=== PATIENT | male | born 1955 | race Caucasian/White ===

== ENCOUNTER 2022-03-09 09:52 | Outpatient (CLI) | payer MEDICAID, SELFPAY ==
--- NOTE | 2022-03-09 10:12 | CT_ITS ---
WS: [id number] LDCT LUNG CANCER SCREENING HISTORY: HX OF TOBACCO USE TECHNIQUE: Axial imaging performed from the apices to 1 cm below the costophrenic angles. Coronal and sagittal reformats are submitted with axial MIP series. All CT scans at [facility] use at least one of these dose optimization techniques: automated exposure control; mA and/or kV adjustment per patient size (includes targeted exams where dose is matched to clinical indication); or iterativ e reconstruction. DLP: 70.90 mGy.cm DIvol: Mean CTDIvol: 1.60 (mGy) COMPARISON: None available. Diagnostic quality: Breathing motion artifact at the lung bases. Lung Nodules: None. Lungs: No mass or pulmonary nodules identified. Focal area of atelectasis in the RIGHT middle lobe al sha the fissure. There is also an area of atelectasis in the lingula. Heart: Normal size heart. Defibrillator wires are present in the RIGHT heart. Aortic valve replacemen t. Coronary artery calcifications. Other findings: Prior CABG. Small hiatal hernia. Thoracic spondylitic changes. CT/CT lung screening [id number] IMPRESSION: LUNG-RADS: 1-Negative FOLLOW UP: 12 Month: Continue annual screening with LDCT OTHER FINDINGS (S MODIFIER): None.
== END 2022-03-09 09:53 | disposition home or self-care (01) ==
LOC: RAD 09:57
PROVIDERS: Family Provider Family Medicine; Visit Provider Family Medicine
DX: Z87.891 Personal history of nicotine dependence (principal)
CPT/HCPCS: 71271

== ENCOUNTER 2022-04-05 11:11 | Outpatient (CLI) | payer MEDICAID, SELFPAY ==
--- NOTE | 2022-04-05 13:46 | PFTS_ITS ---
Date of Study:04/05/22 Date of Dictation: 04/07/2022 MECHANICS: Postbronchodilator forced vital capacity (FVC) is reduced. Postbronchodilator forced expiratory volume in one second (FEV1) is moderately reduced. FEV1/FVC is reduced. There is no significant response to bronchodilator. FLOW VOLUME LOOP: Sloping of expiratory limb suggestive of airflow obstruction. LUNG VOLUMES: Not measured DIFFUSING CAPACITY FOR CARBON MONOXIDE: Not measured . INTERPRETATION: The spirometry suggestive of moderate airflow obstruction. There is no postbronchodilator study. Lung volumes and gas transfer not measured. Clinical correlation recommended. MTDD
== END 2022-04-05 11:12 | disposition home or self-care (01) ==
PROVIDERS: Family Provider Family Medicine; Visit Provider Family Medicine
DX: J44.9 Chronic obstructive pulmonary disease, unspecified (principal)
CPT/HCPCS: 94060; J7614

== ENCOUNTER → 2022-04-10 12:15 | Outpatient (BNVA) | payer MEDICAID, SELFPAY | PROVIDERS: Family Provider Family Medicine; PCP Family Medicine; Visit Provider Internal Medicine | DX: I25.10 Atherosclerotic heart disease of native coronary artery without angina pectoris (principal); I10 Essential (primary) hypertension; Z95.0 Presence of cardiac pacemaker; E78.5 Hyperlipidemia, unspecified; Z95.2 Presence of prosthetic heart valve; R06.00 Dyspnea, unspecified; Z87.891 Personal history of nicotine dependence | CPT/HCPCS: 99203; 99204 ==

== ENCOUNTER 2022-05-02 10:36 | Outpatient (CLI) | payer MEDICAID, SELFPAY ==
--- NOTE | 2022-05-02 11:45 | USCV_ITS ---
Roger Correa Age: 66 Gender: M : 1955 Exam Date: 05/02/2022 11:22 Ordering Phys: Juan Auguste M.D ([email or web address]) Technologist: Dina Coburn Exam Location: [facility] Indication: SOB, CAD BP: 128 / 80 HR: 69 Rhythm: Sinus Technical Quality: Very technically difficult study MEASUREMENTS (Male / Female) Normal Values 2D ECHO LV Diastolic Diameter PLAX 5.6 cm 4.2 - 5.9 / 3.9 - 5.3 cm LV Systolic Diameter PLAX 2.7 cm IVS Diastolic Thickness 1.2 cm 0.6 - 1.0 / 0.6 - 0.9 cm IVS Systolic Thickness 1.8 cm LVPW Diastolic Thickness 1.1 cm 0.6 - 1.0 / 0.6 - 0.9 cm LVPW Systolic Thickness 1.7 cm LVOT Diameter 2.2 cm LV Ejection Fraction 2D Teich 81.7 % LV Ejection Fraction MOD 2C 73.9 % LV Ejection Fraction 2C AL 73.8 % LA Diameter 3.7 cm LA Width 4.2 cm LA Height 5.9 cm Aorta at Sinotubular Diameter 3.4 cm IVC Diameter 2.4 cm M-MODE MV E Point Septal Separation 1.4 cm DOPPLER AV Peak Velocity 173.7 cm/s LVOT Peak Velocity 79.0 cm/s AV Area Cont Eq vti 1.9 cm squared AV Area Cont Eq pk 1.7 cm squared MV Peak Velocity 157.0 cm/s MV Area PHT 3.4 cm squared Mitral E to A Ratio 1.2 MV E' Velocity 53.5 cm/s Mitral E to MV E' Ratio 17.4 Mitral E to LV E' Lateral Ratio 16.0 Mitral E to LV E' Septal Ratio 19.4 TR Peak Velocity 55.0 cm/s TR Peak Gradient 1.2 mmHg Right Atrial Pressure 3.0 mmHg Pulmonary Artery Systolic Pressu 4.2 mmHg PV Peak Velocity 85.0 cm/s RV Acceleration Time 0.1 s RV Ejection Time 0.3 s RV AcT/ET 0.4 FINDINGS Left Ventricle LV is mildly dilated. LV systolic function is grossly normal. Regional wall motion abnormalities can not be accurately assessed. Right Ventricle Normal in size. Grossly normal function. Pacemaker lead is seen Right Atrium Not well visualized Left Atrium Not well visualized Mitral Valve Thickened mitral valve. Mild mitral regurgitation. Aortic Valve Bioprothetic aortic valve is grossly normal. No significant stenosis. Mild aortic regurgitation. Tricuspid Valve Not well visualized Pulmonic Valve Not well visualized Pericardium Normal Aorta Normal in size IVC CONCLUSIONS Technically limited quality echocardiogram because of poor ultrasonic windows LV is mildly dilated. LV systolic function is grossly normal Mild mitral regurgitation Bioprosthetic aortic valve is grossly normal. Mild aortic regurgitation No comparison studies are available Juan Auguste MD (Electronically Signed) Final Date: 17 May 2022 20:23 S
== END 2022-05-02 10:37 | disposition home or self-care (01) ==
PROVIDERS: PCP Family Medicine; Visit Provider Internal Medicine
DX: R06.02 Shortness of breath (principal); I25.10 Atherosclerotic heart disease of native coronary artery without angina pectoris; I34.0 Nonrheumatic mitral (valve) insufficiency; Z95.2 Presence of prosthetic heart valve
CPT/HCPCS: 36415; 93306

== ENCOUNTER 2022-05-03 10:30 | Outpatient (CLI) | payer MEDICAID, SELFPAY ==
[2022-05-03 11:37] LABS: Anion Gap 13.7 (5-19); Blood Urea Nitrogen 14 mg/dL (8-23); Calcium 8.8 mg/dL (8.5-10.5); Carbon Dioxide 30 mmol/L (22-29); Chloride 99 mmol/L (98-107); Glomerular Filtration Rate 113.2 mL/min (90-130); Glucose 160 mg/dL (65-115); NT Pro B Type Natriuretic Pept 158 pg/mL (0-125); Osmolality Calculated 292 mOsm/kg (285-295); Potassium 3.7 mmol/L (3.5-5.1); Sodium 139 mmol/L (136-145)
== END 2022-05-03 10:31 | disposition home or self-care (01) ==
LOC: LAB 10:34
PROVIDERS: PCP Family Medicine; Visit Provider Internal Medicine
DX: Z01.89 Encounter for other specified special examinations (principal)
CPT/HCPCS: 36415; 80048; 83880

== ENCOUNTER → 2022-06-07 08:46 | Outpatient (BNVA) | payer MEDICAID, SELFPAY | PROVIDERS: PCP Family Medicine; Visit Provider Internal Medicine Pulmonary Disease | DX: R06.02 Shortness of breath (principal); I25.10 Atherosclerotic heart disease of native coronary artery without angina pectoris; Z95.0 Presence of cardiac pacemaker; J44.9 Chronic obstructive pulmonary disease, unspecified; E66.9 Obesity, unspecified; Z68.42 Body mass index [BMI] 45.0-49.9, adult; R53.81 Other malaise; Z87.891 Personal history of nicotine dependence; Z95.1 Presence of aortocoronary bypass graft; Z91.11 Patient's noncompliance with dietary regimen; Z95.2 Presence of prosthetic heart valve | CPT/HCPCS: 99204 ==

== ENCOUNTER → 2022-08-14 12:33 | Outpatient (BNVA) | payer MEDICAID, SELFPAY | PROVIDERS: PCP Family Medicine; Visit Provider Internal Medicine | DX: I25.10 Atherosclerotic heart disease of native coronary artery without angina pectoris (principal); I10 Essential (primary) hypertension; Z95.0 Presence of cardiac pacemaker; E78.5 Hyperlipidemia, unspecified; E11.9 Type 2 diabetes mellitus without complications; Z79.4 Long term (current) use of insulin; Z87.891 Personal history of nicotine dependence | CPT/HCPCS: 80048; 83880; 99214 ==

== ENCOUNTER 2022-08-15 13:16 | Outpatient (CLI) | payer MEDICAID, SELFPAY | END 2022-08-15 13:17 | disposition home or self-care (01) | LOC: RT 13:17 | PROVIDERS: PCP Family Medicine; Visit Provider Internal Medicine Pulmonary Disease | DX: J44.9 Chronic obstructive pulmonary disease, unspecified (principal); E66.9 Obesity, unspecified | CPT/HCPCS: 94060; 94618; 94726; 94729; J7613 ==

== ENCOUNTER 2022-10-20 08:04 | Outpatient (CLI) | payer MEDICAID, SELFPAY ==
--- NOTE | 2022-10-20 08:00 | FL_ITS ---
WS: [id number] FL barium swallow [id number] REASON FOR EXAM: R13.10 - Dysphagia, unspecified FLUOROSCOPY TIME: 1min [id number] # OF SPOT FILMS: 82 FINDINGS: The cervical esophagus was evaluated with the patient in the upright lateral and AP projections. Rapi d sequence spot films were obtained. The swallowing mechanism of the oropharynx in the cervical esoph sheyla is normal. No evidence of aspiration. The thoracic esophagus was of normal caliber without extrinsic mass compression. There was normal mot ility in proper emptying of the esophagus with passage through a normal gastroesophageal junction. Sm all sliding hiatal hernia. No significant reflux demonstrated. FL/FL barium swallow [id number] IMPRESSION: The esophagram is normal. The patient's symptoms as related to me or of some coughing and choking with fo od. The patient might benefit from a formal modified barium swallow supervised by the speech therapy department.
== END 2022-10-20 08:05 | disposition home or self-care (01) ==
LOC: RAD 08:05
PROVIDERS: PCP Family Medicine; Visit Provider Internal Medicine Pulmonary Disease
DX: R13.10 Dysphagia, unspecified (principal); J44.9 Chronic obstructive pulmonary disease, unspecified; R06.02 Shortness of breath
CPT/HCPCS: 74220

== ENCOUNTER 2022-11-03 10:12 | Outpatient (CLI) | payer MEDICAID, SELFPAY ==
--- NOTE | 2022-11-03 | ECG_ITS ---
[facility] Test Date: 2022-11-03 Pat Name: Roger Correa Department: Room: Gender: Male Manager Poker: : 1955 Requested By: Juan Auguste Order Number: [id number] Chris MD: Juan Auguste M.D. Interpretive Statements NAME OF STUDY: LEXISCAN SESTAMIBI STRESS TEST INDICATION: [Shortness of Breath; Chest Pain, ] Procedure: At the baseline, the blood pressure was 136/78 mmHg with a heart rate of 75 bpm. The electrocardiogram showed normal sinus rhythm, left bundle branch block. The Lexiscan was infused over a period of 20 seconds. A total of 0.4 mg of Lexiscan was infused. The stress phase was continued for a total of 5 minutes. Heart rate was at the end of stress phase was 77 bpm and a blood pressure of 153/89 mmHg. The EKG at the peak infusion revealed normal sinus rhythm with no significant ST-T wave changes. Sestamibi was injected 20 seconds after the Lexiscan infusion. Blood pressure at the end of recovery phase was 142/70 mmHg with a heart rate of 80 bpm. Conclusion: 1. Normal EKG response to Lexiscan infusion 2. No Lexiscan induced chest pain or cardiac arrhythmia. 3. Normal blood pressure and heart rate response. 4. Sestamibi/sestamibi perfusion scan pending; see separate report. Electronically Signed On 11-11-2022 18:53:00 STONECUTTER HAND by Juan Auguste M.D. [email or web address]
[2022-11-03 10:33] VITALS: BMI 45.7
--- NOTE | 2022-11-03 10:34 | NMCV_ITS ---
NM dat perf SPECT r/s* [id number] Roger Correa Age: 66 Gender: M : 1955 Exam Date: 11/03/2022 11:49 Ordering Phys: Juan Auguste M.D ([email or web address]) Technologist: WESLEY Stewart Exam Location: [facility] Indications: Chest pain STRESS TEST [facility] IMAGE PROTOCOL Rest/Stress 1 Lexiscan Day Radiopharmaceutical Dose (mCi) Administration Site Administered by Rest: Tc-99m 10.9 IV WESLEY Stewart Sestamibi Stress:Tc-99m 33.0 IV WESLEY Stewart Sestamibi Rest: 03-Nov-2022 30 Discovery 630 Stress: 03-Nov-2022 60 Discovery 630 0.4mg Lexiscan. Supine position only as patient was unable to lay prone. SPECT RESULTS Technical Quality: Good Raw Data Analysis: Normal Image Corrections: No attenuation or motion correction applied Summed Stress Score: 11 Summed Rest Score: 12 Summed Difference Score: 1 PERFUSION FINDINGS There is medium sized, partially reversible perfusion defect noted in the anteroseptal wall. This is consistent with medium sized prior infarct with significant cody-infarct ischemia noted in the LAD territory. There is medium sized mostly reversible perfusion defect noted in inferolateral wall. This is consistent with medium sized area of prior infarct with significant cody- infarct ischemia in left circumflex artery territory. FUNCTIONAL RESULTS (calculated via Gated SPECT) Stress Image LV EF (%): 61 Stress EDV (mL):147 TID: 1.09 Stress ESV (mL):57 FUNCTIONAL FINDINGS: There is normal left ventricular systolic function. IMPRESSIONS 1. Abnormal myocardial perfusion imaging. Medium sized prior infarcts with areas of significant cody-infarct ischemia are seen in LAD and left circumflex artery territories. 2. LV systolic function is normal. Juan Auguste MD (Electronically Signed) Final Date: 04 November 2022 10:58 S
[2022-11-03] MEDS: regadenoson 0.4 Mg/5 ml Syringe IVP (12:14)
[2022-11-03 12:31] VITALS: BP 142/70; PULSE 78
== END 2022-11-03 10:13 | disposition home or self-care (01) ==
LOC: CDL 10:14
PROVIDERS: PCP Family Medicine; Visit Provider Internal Medicine
DX: R07.9 Chest pain, unspecified (principal)
CPT/HCPCS: 36415; 78452; 93017; 96374; A9500; J2785

== ENCOUNTER 2022-11-27 05:44 | Outpatient (CLI) | payer MEDICAID, SELFPAY ==
[2022-11-27] VITALS (55 sets, daily range): BP systolic 106–150; BP diastolic 61–96; PULSE 70–87; RESP 13–34; O2SAT 87–94; BMI 46.2
--- NOTE | 2022-11-27 06:00 | XACV_ITS ---
Exam Room: 2 Ht: 170 cm Wt: 132 kg BSA: 2.56 m2 Gender: Male : 1955 Any Known Allergies: Other Exam Priority: Routine Procedure(s): Procedure Description: Diagnostic procedure Procedure Description: Left Heart Catheterization Procedure Description: Aortogram Procedure Description: Venous Graft Catheterization Procedure Description: BOLDEN Graft Catheterization Procedure Description: Coronary Angiography Diagnostic Cath Status: Elective Diagnostic Findings * INDICATION: 67-year-old man with past medical history of coronary artery disease, status post CABG 3 years ago, also aortic valve replacement and pacemaker placement who had presented with worsening dyspnea on exertion. He cannot do any physical activity without significant dyspnea on exertion. Unable to lay down flat. He underwent stress test that is showing prior infarct with significant cody-infarct ischemia. * Left main artery: PatentLAD: Mid vessel occlusion. Has a patent diagonal artery. * Ramus intermedius artery: Proximally occluded. * Left circumflex artery: Mild to moderate diffuse luminal irregularities. OM branches are occluded. * RCA: Occluded. * Bypass grafts: SVG to RCA:Patent. SVG to circumflex artery: Patent. SVG to ramus artery: Occluded. BOLDEN to LAD: Patent.. * Coronary angiography shows right dominance. Conclusions 1. Patent BOLDEN to LAD, SVG to RCA, SVG to Left circumflex artery. Occluded SVG to ramus artery. 2. Patient has prior CABG. Recommendations * Aggressive risk factor modification. * Outpatient cardiology follow up in 4 weeks. Interventional RX Recommendation: medical therapy and/or counseling Diagnostic RX Recommendation: medical therapy and/or counseling Pressures Phase:Rest AO : 84 / 64 ( 74 ) @ 9:31:00 AM 86 / 66 ( 76 ) @ 9:33:00 AM 79 / 58 ( 69 ) @ 9:35:00 AM 91 / 68 ( 80 ) @ 9:37:00 AM 120 / 63 ( 86 ) @ 9:58:00 AM 121 / 57 ( 86 ) @ 9:58:00 AM LV : 128 / -11 / 8 @ 9:58:00 AM 129 / -11 / 11 @ 9:58:00 AM Valves Phase:DefaultPhase AV : 9.0 @ 9:12:32 AM AV Mean Gradient: 12.0 @ 9:12:32 AM 12.0 @ 9:12:32 AM Clinical Evaluation EBL: 5mL-10mL Procedural Details Pre-Procedure Time Out. Identified patient by full name and date of as verbalized by the patient/guarantor. Does the consent match the physician's order: Yes. Accurate & Complete Informed Consent: Yes. Inpatient/Outpatient History & Physical on Chart: Yes. If H&P is completed, is and addenduem needed: Yes; If yes, is the addendum complete: Yes. Visualize and Verify Site with Patient/Guarantor: N/A. Relevant Radiology Images available: Yes. Pre-op teaching completed and patient verbalized understanding. The risks, benefits, and alternatives of sedation and/or procedure were discussed by physician. The patient agrees to continue. Procedure started. Current Diagnosis : Chest Pain. [facility] Clinical Fraility Score: 4: Vulnerable. 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 Chest Pain Symptom Assessment: Atypical Angina. Correct patient, site and procedure confirmed by cath team. Current diagnosis: Chest Pain. PERRLA. Strong, equal hand tubing oiler bilaterally. Lungs clear x 5 lobes. IV Site on Arrival: 20 gauge in the right hand. IV Fluids: 0.9% NaCl at KVO. 0 mL infused prior to cathodic protection technician. Pre Procedural Pulses: bilateral dorsalis pedis was Doppled. Pre Procedural Pulses: bilateral posterior tibial was Doppled. Pre Procedural Pulses: bilateral radial was 2+. Oxygen started at 2liters/min via nasal canula. bilateral groins was prepped with chloroprep then draped in the usual sterile fashion. Baseline sample Acquired. HR: 83 BPM. Physician arrived. Anesthesia here to manage the patients sedation. Physician scrubbed in. Immediate Pre-Procedure Time Out. Correct Patient: Yes; Correct Procedure: Yes; Correct Site: Yes; Correct Patient Position: Yes; Correct Supplies: Yes; Dried Flammable Prep: Yes; Blood Products Available: N/A;. Lidocaine 1% infiltrated to the right groin. Ultrasound being used to obtain access. Arterial access obtained with micropuncture set. A 5 nigerian JL4 catheter in over wire. Multiple views taken of left coronary artery. Catheter removed over the standard wire. A 5 nigerian JR4 catheter in over wire. Multiple views taken of right coronary artery. SVG's to OM 1 and OM 2 visualized and patent. BOLDEN to LAD visualized. Catheter removed over the standard wire. A 6 nigerian MPA1 catheter in over wire. SVG's to RCA visualized and patent. Catheter removed over the standard wire. A 6 nigerian LCB catheter in over wire. Catheter removed over the standard wire. A 5 nigerian Angled Pig catheter in over wire. SVG to Ramus occluded. EDP Sample taken: LV 128/-12,8; HR: 90 BPM; SpO2: 90%. Pullback taken: LV 129/-12,11; AO 120/63(86); Mean: 12mmHg, Peak to Peak: 9mmHg, SEP: 22sec/min; HR: 90 BPM; SpO2: 89%. Aortogram performed in LATVIAN @ 10 mL/second for a total of 30 mL. Physician review of cine films. Catheter removed over the standard wire. A Right femoral angiogram was performed to determine safe placement of closure device. Angioseal placed without complications. No signs or symptoms of hematoma noted. Sterile dressing applied per usual sterile fashion. A Angio-Seal VIP ([place]) was successful obtaining hemostatsis at the Right Femoral artery insertion site. Post Procedure: Pulses reassessed and unchanged. PERRLA. Strong, equal hand tubing oiler bilaterally. No VTE prophylaxis required. Medication's Wasted: Heparin = 1000 units. Medication's Wasted: Other = Versed 2 mg. Total IV fluids: 500 mL. Complications: None. Estimated blood loss: 5mL-10mL. Responsiveness - Normal response to verbal stimuli; alert and oriented, PERRLA. Airway - Unaffected, no intervention required; spontaneous ventilation. Circulation: W/N/L, pulses unchanged. Nausea/Vomiting: No. Procedure completed. Patient transferred by bed to CPRU. Vital chart was stopped. Access Site Site: Right Femoral artery Sheath Size: 6 Fr Hemostasis Method: Angio-Seal VIP ([place]) Hemostasis Success: Successful I, the attending physician, have reviewed and verified all procedure medications. Yes, all medications given per verbal order History/Risk Factors Hypertension: Yes Dyslipidemia: Yes Peripheral Arterial Disease (PAD): No Obesity: Yes Renal Disease: No Tobacco Use: Former Prior Interventions PCI: No CABG: Yes Valve Surgery: No Report Signatures Finalized by Juan Auguste MD on 12/05/2022 11:59 AM
[2022-11-27] MEDS: diphenhydrAMINE 50 mg Capsule PO (06:30)
[2022-11-27 06:45] LABS: Basophils # 0.1 10^3/uL (0.0-0.1); Basophils % 0.8 %; Eosinophils # 0.5 10^3/uL (0.0-0.8); Eosinophils % 4.6 %; Hematocrit 47.2 % (42.0-52.0); Hemoglobin 14.7 g/dL (11.7-16.6); Lymphocytes # 2.5 10^3/uL (0.8-4.8); Lymphocytes % 23.2 %; Mean Corpuscular HGB Conc 31.1 g/dL (30.0-36.0); Mean Corpuscular Hemoglobin 28.9 pg (28.0-34.0); Mean Corpuscular Volume 92.7 fl (80-94); Mean Platelet Volume 9.4 fL (7.4-10.4); Monocytes # 0.7 10^3/uL (0.2-0.9); Monocytes % 6.3 %; Neutrophils # 6.97 10^3/uL (1.8-7.7); Neutrophils % 63.5 %; Nucleated Red Blood Cells % 0 %; Platelet Count 232 10^3/cmm (130-400); Red Blood Count 5.09 10^6/uL (4.1-5.3); Red Cell Distribution Width 17.3 % (12.1-15.1)
[2022-11-27 06:58] LABS: INR 0.99 (0.8-1.2)
[2022-11-27 07:05] LABS: Anion Gap 18.2 (5-19); Blood Urea Nitrogen 15 mg/dL (8-23); Calcium 9.5 mg/dL (8.5-10.5); Carbon Dioxide 23 mmol/L (22-29); Chloride 100 mmol/L (98-107); Glomerular Filtration Rate 112.8 mL/min (90-130); Glucose 183 mg/dL (65-115); Osmolality Calculated 290 mOsm/kg (285-295); Potassium 4.2 mmol/L (3.5-5.1); Sodium 137 mmol/L (136-145)
[2022-11-27 07:31] LABS: Glucose Point of Care 195 mg/dL (70-110)
--- NOTE | 2022-11-27 07:43 | P.ANESASSM_ITS ---
Pre-Anesthetic Assessment Height/Weight: Height 1.7 m Operation Date: 11/27/22 07:00 Proposed Procedures p [facility] w/wo 75176,R94.39,R06.02, I25.10(Left) - Juan Auguste M.D Familial anesthetic complications: None Was Beta Mariela taken within 24 hours: Yes Was Clonidine taken within 24 hours: N/A Last intake: > 8 hrs (small sips with meds) Social No alcohol and No tobacco Former Smoker Exam alert, oriented x 3, clear to auscultation bilaterally and regular rate & rhythm Diminished Airway Mallampati: Class IV Dentition: other (no teeth) Pulmonary Chronic Obstructive Pulmonary Disease (2 L NC PRN, but frequently requiring it) and Exertional Dyspnea 2021 PFTs --> Moderate COPD with moderately reduced gas transfer CV/HEM Coronary Artery Disease (Prior CABG, Cardiac pacemaker), Congestive Heart Failure and Hypertension Aortic Valve Replacement Myocardial perfusion scan 2022 IMPRESSIONS ?1.? Abnormal myocardial perfusion imaging.? Medium sized prior infarcts with ?areas of significant cody-infarct ischemia are seen in LAD and left circumflex ?artery territories. ?2.? LV systolic function is normal. Sestamibi Conclusion 2022 : 1. ? Normal EKG response to Lexiscan infusion 2.? No Lexiscan induced chest pain or cardiac arrhythmia. 3.? Normal blood pressure and heart rate response. 4.? Sestamibi/sestamibi perfusion scan pending; see separate report. Echo 2021?CONCLUSIONS ?Technically limited quality echocardiogram because of poor ?ultrasonic windows ?LV is mildly dilated. LV systolic function is grossly normal ?Mild mitral regurgitation ?Bioprosthetic aortic valve is grossly normal. Mild aortic ?regurgitation ?No comparison studies are available Metabolic Diabetes Mellitus and Morbid Obesity [facility] Lower Back Pain and Rheumatoid Arthritis thoracic back pain - limits ability to lay flat, rather than orthopnea Anesthetic Plan ASA status: 4 Anesthesia: MAC Risk of > 500 ml blood loss (7ml/kg in children): No Medications/Allergies Home Medications Medication Instructions Recorded Confirmed Last Taken Type albuterol sulfate 90 mcg/actuation 2 puff inhalation QID PRN Allergic 04/10/22 11/24/22 Unknown History aerosol inhaler (ProAir HFA) Reaction amlodipine 5 mg tablet 5 mg PO DAILY 04/10/22 11/27/22 11/27/22 05:30 History aspirin 81 mg tablet,delayed 81 mg PO DAILY 04/10/22 11/27/22 11/27/22 05:30 History release (Adult Low Dose Aspirin) atorvastatin 40 mg tablet 40 mg PO DAILY 04/10/22 11/27/22 11/26/22 22:00 History budesonide 160 mcg-glycopyr 9 2 inh inhalation BID 04/10/22 11/27/22 11/27/22 05:30 History mcg-formot 4.8 mcg/actuation HFA inhaler (Breztri Aerosphere) cholecalciferol (vitamin D3) 50 50 mcg PO DAILY 04/10/22 11/27/22 11/26/22 05:30 History mcg (2,000 unit) capsule clopidogrel 75 mg tablet (Plavix) 75 mg PO DAILY 04/10/22 11/27/22 11/27/22 05:30 History dulaglutide 1.5 mg/0.5 mL 300 mg SUBCUT DIRECTED 04/10/22 11/27/22 11/24/22 07:00 History subcutaneous pen injector (Trulicity) empagliflozin 10 mg tablet 10 mg PO DAILY 04/10/22 11/27/22 11/26/22 06:00 History (Jardiance) furosemide 80 mg tablet 80 mg PO DAILY 04/10/22 11/27/22 11/26/22 06:00 History insulin aspart U-100 100 unit/mL 20 unit SUBCUT QID 04/10/22 11/27/22 11/26/22 22:00 History subcutaneous cartridge (Novolog 10 units PenFill U-100 Insulin aspart) insulin glargine 100 unit/mL (3 45 unit SUBCUT DAILY 04/10/22 11/27/22 11/26/22 12:00 History mL) subcutaneous pen (Lantus 23 units Solostar U-100 Insulin) metoprolol tartrate 50 mg tablet 50 mg PO DAILY 04/10/22 11/27/22 11/27/22 05:30 History naproxen 500 mg tablet 500 mg PO BID PRN Analgesia 04/10/22 11/27/22 11/27/22 05:30 History potassium chloride 20 mEq 20 meq PO DAILY 04/10/22 11/27/22 11/27/22 05:30 History tablet,extended release 81-iron 27 mg-folic 1 1 dose pk PO DAILY 04/10/22 11/27/22 11/26/22 05:30 History mg-omega3 430 mg tablet,capsule,del.rel ([facility]) albuterol sulfate 2.5 mg/3 mL 2.5 mg inhalation Q6H PRN 09/13/22 11/24/22 Unknown History (0.083 %) solution for nebulization shortness of breath or wheezing nystatin 100,000 unit/mL oral 10 ml PO DAILY #250 mL 09/14/22 11/24/22 Unknown Rx suspension Allergies Allergy/AdvReac Type Severity Reaction Status Date / Time clavulanic acid Allergy Unknown Unknown Verified 11/24/22 11:54 [From Augmentin] Current Medications Generic Name Dose Route Start Last Admin Trade Name Freq PRN Reason Stop Dose Admin Sodium Chloride 1,000 mls @ 50 mls/hr 11/27/22 06:00 11/27/22 06:52 Sodium Chloride 0.9% IV 11/28/22 01:59 Not Given .Q20H ONE PFSH Anesthesia Medical History Arteriosclerosis of coronary artery bypass graft Asthma CAD (coronary artery disease) Cardiac pacemaker COPD (chronic obstructive pulmonary disease) Essential (primary) hypertension Heart disease Hyperlipemia Hyperlipidemia, unspecified Hypertension Obesity Osteoarthritis Rheumatoid arthritis Type 2 diabetes mellitus Surgical History H/O angioplasty H/O aortic valve replacement Family History Grandfather Stroke Grandmother Chest pain Social History Smoking and tobacco status: former smoker Quit status (tobacco): has quit using tobacco Year quit tobacco: 2019 Former quit date comment: 2ppd x 51 years Data Anesthesia 11/27/22 06:10 11/27/22 06:10 Short CBC 11/27/22 Range/Units 06:10 WBC 11.0 H (4.0-10.0) 10^3/uL Hgb 14.7 (11.7-16.6) g/dL Hct 47.2 (42.0-52.0) % MCV 92.7 (80-94) fl Plt Count 232 (130-400) 10^3/cmm Neut % (Auto) 63.5 % Neut # (Auto) 6.97 (1.8-7.7) 10^3/uL BMP 11/27/22 06:10 Sodium 137 Potassium 4.2 Chloride 100 Carbon Dioxide 23 BUN 15 Creatinine 0.7 Glucose 183 H Calcium 9.5 Coags 11/27/22 06:10 PT 13.40 INR 0.99 Cardiac Studies: Echocardiogram 05/02/22 Sestamibi Stress Test (Cardiology) 11/03
--- NOTE | 2022-11-27 08:08 | P.HP_ITS ---
Same Day Surgery H&P Indication for Procedure/HPI DATE OF PROCEDURE: November 27, 2022 CHIEF COMPLAINT/INDICATIONFOR SURGICAL PROCEDURE: Dyspnea on exertion/ Abnormal stress test PREOP DIAGNOSIS: Dyspnea on exertion/ Abnormal stress test PLANNED PROCEDURE: Operation Date: 11/27/22 07:00 Proposed Procedures p [facility] w/wo 19424,R94.39,R06.02, I25.10(Left) - Juan Auguste M.D Possible percutaneous coronary intervention 67-year-old man with past medical history of coronary artery disease, status post CABG 3 years ago, also aortic valve replacement and pacemaker placement who had presented with worsening dyspnea on exertion. He cannot do any physical activity without significant dyspnea on exertion. Unable to lay down flat. He underwent stress test that is showing prior infarct with significant cody- infarct ischemia. Medications/Allergies* Home Medications Medication Instructions Recorded Confirmed Type albuterol sulfate 90 mcg/actuation 2 puff inhalation QID PRN Allergic 04/10/22 11/24/22 History aerosol inhaler (ProAir HFA) Reaction amlodipine 5 mg tablet 5 mg PO DAILY 04/10/22 11/27/22 History aspirin 81 mg tablet,delayed 81 mg PO DAILY 04/10/22 11/27/22 History release (Adult Low Dose Aspirin) atorvastatin 40 mg tablet 40 mg PO DAILY 04/10/22 11/27/22 History budesonide 160 mcg-glycopyr 9 2 inh inhalation BID 04/10/22 11/27/22 History mcg-formot 4.8 mcg/actuation HFA inhaler (Breztri Aerosphere) cholecalciferol (vitamin D3) 50 50 mcg PO DAILY 04/10/22 11/27/22 History mcg (2,000 unit) capsule clopidogrel 75 mg tablet (Plavix) 75 mg PO DAILY 04/10/22 11/27/22 History dulaglutide 1.5 mg/0.5 mL 300 mg SUBCUT DIRECTED 04/10/22 11/27/22 History subcutaneous pen injector (Trulicity) empagliflozin 10 mg tablet 10 mg PO DAILY 04/10/22 11/27/22 History (Jardiance) furosemide 80 mg tablet 80 mg PO DAILY 04/10/22 11/27/22 History insulin aspart U-100 100 unit/mL 20 unit SUBCUT QID 04/10/22 11/27/22 History subcutaneous cartridge (Novolog PenFill U-100 Insulin aspart) insulin glargine 100 unit/mL (3 45 unit SUBCUT DAILY 04/10/22 11/27/22 History mL) subcutaneous pen (Lantus Solostar U-100 Insulin) metoprolol tartrate 50 mg tablet 50 mg PO DAILY 04/10/22 11/27/22 History naproxen 500 mg tablet 500 mg PO BID PRN Analgesia 04/10/22 11/27/22 History potassium chloride 20 mEq 20 meq PO DAILY 04/10/22 11/27/22 History tablet,extended release 81-iron 27 mg-folic 1 1 dose pk PO DAILY 04/10/22 11/27/22 History mg-omega3 430 mg tablet,capsule,del.rel ([facility]) albuterol sulfate 2.5 mg/3 mL 2.5 mg inhalation Q6H PRN 09/13/22 11/24/22 History (0.083 %) solution for nebulization shortness of breath or wheezing Allergies/Adverse Reactions Allergy/AdvReac Type Severity Reaction Status Date / Time clavulanic acid Allergy Unknown Unknown Verified 11/24/22 11:54 [From Augmentin] Current Medications: 3 Generic Name Dose Route Start Last Admin Trade Name Freq PRN Reason Stop Dose Admin Sodium Chloride 1,000 mls @ 50 mls/hr 11/27/22 06:00 11/27/22 06:52 Sodium Chloride 0.9% IV 11/28/22 01:59 Not Given .Q20H ONE Pertinent History/Comorbid Conditions* Medical History (Updated 06/07/22 @ 14:15 by Lucas Alfaro MD) Arteriosclerosis of coronary artery bypass graft Asthma CAD (coronary artery disease) Cardiac pacemaker COPD (chronic obstructive pulmonary disease) Essential (primary) hypertension Heart disease Hyperlipemia Hyperlipidemia, unspecified Hypertension Obesity Osteoarthritis Rheumatoid arthritis Type 2 diabetes mellitus Surgical History (Updated 04/14/22 @ 14:58 by Juan Auguste M.D) H/O angioplasty H/O aortic valve replacement Family History (Updated 04/10/22 @ 12:40 by Lynn Martinez RN) Chest pain Grandmother Stroke Grandfather Social History Smoking and tobacco status: former smoker Quit status (tobacco): has quit using tobacco Year quit tobacco: 2019 Former quit date comment: 2ppd x 51 years Pertinent Exam Findings alert, oriented x 3 and regular rate & rhythm Has decreased breath sounds Conscious Sedation Assessment Anesthesia team Recommendations Surgery/Procedure today (Left heart cath with possible percutaneous coronary intervention) Coding Level of Care Code Acute Code for [facility] Fwd
--- NOTE | 2022-11-27 09:44 | PC.NURSE ---
Transfer orders received. Dsg over angioseal site to patients right groin clean, dry, et intact. No drainage or hematoma noted. Vitals stable. No c/o pain or discomfort. Report given to PRINCE Hinton. Patient transferred from [facility]U to [facility] via [facility]. All belongings sent with patient.
--- NOTE | 2022-11-27 10:29 | PC.NURSE ---
received from cardiac cathode maker at 0955.report received.pt is alert and awake and oriented x 4.denies pain at present.paced on monitor.right femoral cath site with drsg dry and intact (sheath pulled and angioseal inserted in cathode maker).no hematoma noted.right leg is warm to touch and with brisk capillary refill.palpable dp pulse noted.pt and cg instructed in activity restrictions s/p femoral artery procedure and instructed to notify staff for any bleeding,pain,sob,numbness,or for any concerns at all.they verb understanding of instructions
--- NOTE | 2022-11-27 17:20 | PC.NURSE ---
discharge instructions given and explained to pt and spouse.both verb understanding of instructions.discharged via w/c to exit at this time.
== END 2022-11-27 17:22 | disposition home or self-care (01) ==
LOC: CCL 05:47 → CSU 09:33
PROVIDERS: Family Provider Internal Medicine Interventional Cardiology; PCP Family Medicine; Visit Provider Internal Medicine
DX: I25.10 Atherosclerotic heart disease of native coronary artery without angina pectoris (principal); R94.39 Abnormal result of other cardiovascular function study; R06.02 Shortness of breath; Z95.1 Presence of aortocoronary bypass graft; Z95.0 Presence of cardiac pacemaker; J44.9 Chronic obstructive pulmonary disease, unspecified; E78.5 Hyperlipidemia, unspecified; I11.0 Hypertensive heart disease with heart failure; I50.9 Heart failure, unspecified; E66.9 Obesity, unspecified; Z68.42 Body mass index [BMI] 45.0-49.9, adult; M06.9 Rheumatoid arthritis, unspecified; E11.9 Type 2 diabetes mellitus without complications; Z79.4 Long term (current) use of insulin; Z87.891 Personal history of nicotine dependence; Z99.81 Dependence on supplemental oxygen; Z79.82 Long term (current) use of aspirin
CPT/HCPCS: 36415; 36416; 75605; 80048; 82962; 85025; 85610; 93459; 96361; 96365; C1760; C1769; C1887; C1894; G0269; J1644; J2250; J2704; J3010; J7030; Q0163; Q9967

== ENCOUNTER → 2022-12-11 10:20 | Outpatient (BNVA) | payer MEDICAID, SELFPAY | PROVIDERS: Family Provider Internal Medicine Interventional Cardiology; PCP Family Medicine; Visit Provider Nurse Practitioner Family | DX: I25.10 Atherosclerotic heart disease of native coronary artery without angina pectoris (principal); Z87.891 Personal history of nicotine dependence; I11.9 Hypertensive heart disease without heart failure; Z95.0 Presence of cardiac pacemaker | CPT/HCPCS: 99214 ==

== ENCOUNTER → 2023-02-12 15:32 | Outpatient (BNVA) | payer MEDICAID, SELFPAY | PROVIDERS: Family Provider Internal Medicine Interventional Cardiology; PCP Family Medicine; Visit Provider Internal Medicine | DX: Z95.0 Presence of cardiac pacemaker (principal); I25.10 Atherosclerotic heart disease of native coronary artery without angina pectoris; E78.5 Hyperlipidemia, unspecified; E11.9 Type 2 diabetes mellitus without complications; Z87.891 Personal history of nicotine dependence; I11.9 Hypertensive heart disease without heart failure; Z79.4 Long term (current) use of insulin | CPT/HCPCS: 99214 ==

== ENCOUNTER 2023-03-28 09:03 | Outpatient (CLI) | payer MEDICAID, SELFPAY ==
--- NOTE | 2023-03-28 09:14 | CT_ITS ---
WS: [id number] LDCT LUNG CANCER SCREENING TECHNIQUE: Noncontrast CT of the chest with coronal and sagittal reformatted images. CLINICAL INFORMATION: HX OF TOBACCO USE COMPARISON: CT lung screening March 09, 2022 DLP: 197.09 mGy.cm DIvol: Mean CTDIvol: 5.00 (mGy) All CT scans at [facility] use at least one of these dose optimization techniques: automat ed exposure control; mA and/or kV adjustment per patient size (includes targeted exams where dose is matched to clinical indication); or iterative reconstruction. FINDINGS:Subsegmental atelectasis LEFT lower lobe and LEFT upper lobe anteriorly. Subsegmental atelec tasis with bronchiectasis RIGHT middle lobe. Hazy ground glass opacities LEFT lower lobe with subsegm ental atelectasis likely inflammatory. AICD. Prior aVR. Aortic calcification. Coronary artery calcification. CABG. Small esophageal hiatal hernia. Mild thoracic curve. Moderate thoracic kyphosis. Hypertrophic changes thoracic spine. No mediastinal or hilar lymphadenopathy. Adrenal glands are normal. Subcutaneous sebaceous cyst in th e LEFT lower back measuring 3.[address]/CT lung screening [id number] IMPRESSION: LUNG-RADS: 2-Benign Appearance or Behavior FOLLOW UP: 12 Month: Continue annual screening with LDCT
== END 2023-03-28 09:04 | disposition home or self-care (01) ==
LOC: RAD 09:05
PROVIDERS: PCP Family Medicine; Visit Provider Nurse Practitioner Family
DX: Z12.2 Encounter for screening for malignant neoplasm of respiratory organs (principal); Z87.891 Personal history of nicotine dependence
CPT/HCPCS: 71271

== ENCOUNTER → 2023-08-20 13:49 | Outpatient (BNVA) | payer MEDICAID, SELFPAY | PROVIDERS: PCP Family Medicine; Visit Provider Internal Medicine | DX: Z95.0 Presence of cardiac pacemaker (principal); I25.10 Atherosclerotic heart disease of native coronary artery without angina pectoris; E78.5 Hyperlipidemia, unspecified; E11.9 Type 2 diabetes mellitus without complications; Z79.4 Long term (current) use of insulin; Z87.891 Personal history of nicotine dependence; I11.9 Hypertensive heart disease without heart failure | CPT/HCPCS: 99214 ==

== ENCOUNTER 2023-09-28 10:22 | Outpatient (CLI) | payer MEDICAID, SELFPAY ==
[2023-09-28 11:01] LABS: Blood Urea Nitrogen 15 mg/dL (8-23); Calcium 9.7 mg/dL (8.5-10.5); Carbon Dioxide 28 mmol/L (22-29); Chloride 97 mmol/L (98-107); Glomerular Filtration Rate 96.7 mL/min (90-130); Glucose 126 mg/dL (65-115); Magnesium 2.4 mg/dL (1.7-2.3); Osmolality Calculated 286 mOsm/kg (285-295); Sodium 137 mmol/L (136-145)
== END 2023-09-28 10:23 | disposition home or self-care (01) ==
LOC: LAB 10:23
PROVIDERS: PCP Family Medicine; Visit Provider Family Medicine
DX: R60.0 Localized edema (principal)
CPT/HCPCS: 36415; 80048; 83735

== ENCOUNTER → 2023-10-17 11:14 | Outpatient (BNVA) | payer MEDICAID, SELFPAY | PROVIDERS: PCP Family Medicine; Visit Provider Internal Medicine Pulmonary Disease | DX: R06.02 Shortness of breath (principal); I10 Essential (primary) hypertension | CPT/HCPCS: 85025 ==

== ENCOUNTER → 2023-12-06 14:34 | Outpatient (BNVA) | payer MEDICAID, SELFPAY | PROVIDERS: PCP Family Medicine; Visit Provider Internal Medicine | DX: I48.91 Unspecified atrial fibrillation (principal); Z95.0 Presence of cardiac pacemaker; I25.10 Atherosclerotic heart disease of native coronary artery without angina pectoris; I10 Essential (primary) hypertension; E78.5 Hyperlipidemia, unspecified; E11.9 Type 2 diabetes mellitus without complications; Z87.891 Personal history of nicotine dependence; Z79.4 Long term (current) use of insulin | CPT/HCPCS: 99214 ==

== ENCOUNTER 2023-12-07 07:37 | Outpatient (CLI) | payer MEDICAID, SELFPAY ==
[2023-12-07 08:16] LABS: Anion Gap 14.8 (5-19); Blood Urea Nitrogen 15 mg/dL (8-23); Calcium 9.4 mg/dL (8.5-10.5); Carbon Dioxide 27 mmol/L (22-29); Chloride 101 mmol/L (98-107); Glomerular Filtration Rate 96.4 mL/min (90-130); Glucose 112 mg/dL (65-115); Osmolality Calculated 290 mOsm/kg (285-295); Potassium 3.8 mmol/L (3.5-5.1); Sodium 139 mmol/L (136-145)
[2023-12-07 08:42] LABS: Estmated Average Glucose 151; Hemoglobin A1C 6.9 % (4.0-6.0)
== END 2023-12-07 07:38 | disposition home or self-care (01) ==
LOC: LAB 07:39
PROVIDERS: PCP Family Medicine; Visit Provider Family Medicine
DX: R60.0 Localized edema (principal); E11.9 Type 2 diabetes mellitus without complications
CPT/HCPCS: 36415; 80048; 83036

== ENCOUNTER 2024-01-14 12:00 | Outpatient (CLI) | payer MEDICAID, SELFPAY | END 2024-01-14 12:01 | disposition home or self-care (01) | LOC: SLEEP 01-15 09:49 | PROVIDERS: PCP Family Medicine; Visit Provider Family Medicine | DX: G47.33 Obstructive sleep apnea (adult) (pediatric) (principal) | CPT/HCPCS: G0399 ==

== ENCOUNTER 2024-03-10 09:01 | Outpatient (CLI) | payer MEDICAID, SELFPAY ==
[2024-03-10 10:13] LABS: Estmated Average Glucose 157; Hemoglobin A1C 7.1 % (4.0-6.0)
[2024-03-10 10:32] LABS: 25 Hydroxy Vitamin D 28 ng/mL (30-100); Vitamin B12 609 pg/mL (232-1245)
== END 2024-03-10 09:02 | disposition home or self-care (01) ==
LOC: LAB 09:07
PROVIDERS: PCP Family Medicine; Visit Provider Family Medicine
DX: E11.9 Type 2 diabetes mellitus without complications (principal); E55.9 Vitamin D deficiency, unspecified; R53.83 Other fatigue
CPT/HCPCS: 82306; 82607; 83036

== ENCOUNTER → 2024-04-16 13:58 | Outpatient (BNVA) | payer MEDICAID, SELFPAY | PROVIDERS: PCP Family Medicine; Visit Provider Internal Medicine Critical Care Medicine | DX: R06.09 Other forms of dyspnea (principal); J43.2 Centrilobular emphysema; I51.9 Heart disease, unspecified; G47.33 Obstructive sleep apnea (adult) (pediatric); E66.01 Morbid (severe) obesity due to excess calories; Z68.41 Body mass index [BMI] 40.0-44.9, adult; Z71.3 Dietary counseling and surveillance; Z71.82 Exercise counseling | CPT/HCPCS: 99214 ==

== ENCOUNTER 2024-05-28 10:54 | Outpatient (CLI) | payer MEDICAID, SELFPAY ==
--- NOTE | 2024-05-28 11:15 | USCV_ITS ---
Roegr Correa Age: 68 Gender: M : 1955 Exam Date: 05/28/2024 11:10 Ordering Phys: Juan Auguste M.D ([email or web address]) Technologist: CT Exam Location: [facility] [place] Indication: copd, sob BP: 146 / 77 HR: 72 Rhythm: Sinus Technical Quality: Technically difficult study MEASUREMENTS (Male / Female) Normal Values 2D ECHO LVOT Diameter 2.1 cm LV Ejection Fraction MOD 4C 45.2 % LV Ejection Fraction MOD 2C 55.3 % LV Ejection Fraction 2C AL 55.5 % LA Diameter 3.7 cm RA Systolic Volume 4C AL 66.8 ml RA Systolic Volume 4C MOD 64.7 ml LA Sys Volume AL 51.6 cm cubed LA Sys Volume Index AL 20.9 cm cubed/m squared Aorta at Sinotubular Diameter 3.0 cm IVC Diameter 2.5 cm M-MODE LA Ao Ratio MM 2.1 AV Cusp Separation MM 1.5 cm DOPPLER AV Peak Velocity 146.0 cm/s LVOT Peak Velocity 122.0 cm/s AV Area Cont Eq vti 3.0 cm squared AV Area Cont Eq pk 2.9 cm squared MV Peak Velocity 136.0 cm/s MV Area PHT 2.5 cm squared Mitral E to A Ratio 0.9 TV Peak E Velocity 53.0 cm/s Right Atrial Pressure 3.0 mmHg PV Peak Velocity 109.0 cm/s FINDINGS Left Ventricle Moderately increased left ventricular cavity size. Severely decreased left ventricular systolic function. Left ventricular ejection fraction is estimated at 35 %. Grade I/IV diastolic dysfunction (abnormal relaxation filling pattern), normal to mildly elevated filling pressures. Right Ventricle Normal right ventricular size. Catheter/pacemaker wire visualized in the right ventricle. Right Atrium Normal right atrial size. Catheter/pacemaker wire in the right atrial cavity. Left Atrium The left atrium is normal in size. Mitral Valve Moderately thickened mitral valve. Severe mitral annular calcification. No mitral valve stenosis. Trace mitral valve regurgitation. Aortic Valve Moderate aortic valve calcification. No aortic valve stenosis. Trace aortic valve regurgitation. Tricuspid Valve Structurally normal tricuspid valve without significant stenosis or regurgitation. Pulmonary artery systolic pressure is normal. Pulmonic Valve Structurally normal pulmonic valve without significant stenosis. There is no pulmonic regurgitation. Pericardium Normal pericardium without effusion. Aorta Normal ascending aorta dimension. IVC The inferior vena cava appears normal. CONCLUSIONS Moderately increased left ventricular cavity size. Severely decreased left ventricular systolic function. Left ventricular ejection fraction is estimated at 35 %. Grade I/IV diastolic dysfunction (abnormal relaxation filling pattern), normal to mildly elevated filling pressures. Normal right ventricular size. Catheter/pacemaker wire visualized in the right ventricle Moderately thickened mitral valve. Severe mitral annular calcification. No mitral valve stenosis. Trace mitral valve regurgitation. No significant valve abnormalities. There is no pericardial effusion. Right atrial pressure is around 10 mm of mercury. Julius Garcia MD (Electronically Signed) Final Date: 30 May 2024 18:13 S
== END 2024-05-28 10:55 | disposition home or self-care (01) ==
LOC: RAD 10:55
PROVIDERS: PCP Family Medicine; Visit Provider Internal Medicine
DX: I50.20 Unspecified systolic (congestive) heart failure (principal); I50.30 Unspecified diastolic (congestive) heart failure; I51.7 Cardiomegaly; I35.2 Nonrheumatic aortic (valve) stenosis with insufficiency; I70.0 Atherosclerosis of aorta
CPT/HCPCS: 93306

== ENCOUNTER → 2024-06-09 15:25 | Outpatient (BNVA) | payer MEDICAID, SELFPAY | PROVIDERS: PCP Family Medicine; Visit Provider Internal Medicine | DX: I25.10 Atherosclerotic heart disease of native coronary artery without angina pectoris (principal); Z95.0 Presence of cardiac pacemaker; I10 Essential (primary) hypertension; E78.5 Hyperlipidemia, unspecified; E11.9 Type 2 diabetes mellitus without complications; I48.91 Unspecified atrial fibrillation; Z87.891 Personal history of nicotine dependence | CPT/HCPCS: 99214 ==

== ENCOUNTER 2024-06-12 09:54 | Outpatient (CLI) | payer MEDICAID, SELFPAY ==
[2024-06-12 10:51] LABS: Estmated Average Glucose 160; Hemoglobin A1C 7.2 % (4.0-6.0)
[2024-06-12 10:58] LABS: Creatinine Urine, Random 46 mg/dL (39-259); Microalbumin Random Urine 4 ug/dL (0-20)
[2024-06-12 11:02] LABS: Microalbum Creatinine Ratio Ur 87 mg/dL (0-20)
== END 2024-06-12 09:55 | disposition home or self-care (01) ==
LOC: LAB 09:55
PROVIDERS: PCP Family Medicine; Visit Provider Family Medicine
DX: Z01.89 Encounter for other specified special examinations (principal)
CPT/HCPCS: 36415; 82044; 83036

== ENCOUNTER 2024-07-04 11:51 | Outpatient (CLI) | payer MEDICAID, SELFPAY ==
--- NOTE | 2024-07-04 12:02 | CT_ITS ---
WS: [id number] LDCT LUNG CANCER SCREENING TECHNIQUE: Noncontrast CT of the chest with coronal and sagittal reformatted images. CLINICAL INFORMATION: LUNG SCREENING; FORMER [employer] COMPARISON: 2022 DLP: 186.47 mGy.cm DIvol: Mean CTDIvol: 4.50 (mGy) All CT scans at [facility] use at least one of these dose optimization techniques: automat ed exposure control; mA and/or kV adjustment per patient size (includes targeted exams where dose is matched to clinical indication); or iterative reconstruction. FINDINGS: Subsegmental atelectasis RIGHT middle lobe and RIGHT upper lobe. Subsegmental atelectasis L EFT upper lobe anteriorly. Subsegmental atelectasis in the lingula. A few hazy inflammatory appearing opacities. No new suspicious pulmonary parenchymal abnormalities. Aortic calcification. AVR. Sternotomy. Coronary calcification. CABG. No mediastinal or hilar lymphade nopathy. No axillary lymphadenopathy. Small esophageal hiatal hernia. Thoracic kyphosis and thoracic curve hypertrophic changes thoracic spine. AVR Adrenal glands are normal. CT/CT lung screening [id number] IMPRESSION: LUNG-RADS: 2-Benign Appearance or Behavior FOLLOW UP: 12 Month: Continue annual screening with LDCT
== END 2024-07-04 11:52 | disposition home or self-care (01) ==
LOC: RAD 11:52
PROVIDERS: PCP Family Medicine; Visit Provider Family Medicine
DX: Z12.2 Encounter for screening for malignant neoplasm of respiratory organs (principal); F17.210 Nicotine dependence, cigarettes, uncomplicated; J98.11 Atelectasis; I70.0 Atherosclerosis of aorta; M40.204 Unspecified kyphosis, thoracic region
CPT/HCPCS: 71271

== ENCOUNTER 2024-09-11 09:50 | Outpatient (CLI) | payer MEDICAID, SELFPAY ==
[2024-09-11 10:19] LABS: Basophils # 0.1 10^3/uL (0.0-0.1); Eosinophils # 0.3 10^3/uL (0.0-0.8); Eosinophils % 2.8 %; Hematocrit 51.8 % (37-53); Lymphocytes % 17.5 %; Mean Corpuscular HGB Conc 31.5 g/dL (30-55); Mean Corpuscular Hemoglobin 27.6 pg (27-33); Mean Corpuscular Volume 87.6 fl (82-101); Mean Platelet Volume 8.9 fL (7.4-10.4); Monocytes # 0.6 10^3/uL (0.2-0.9); Monocytes % 5.5 %; Neutrophils # 8.05 10^3/uL (1.8-7.7); Neutrophils % 71.7 %; Nucleated Red Blood Cells % 0 %; Platelet Count 267 10^3/cmm (157-399); Red Blood Count 5.91 10^6/uL (3.85-5.65); Red Cell Distribution Width 18.6 % (12.1-15.1); White Blood Count 11.23 10^3/uL (3.29-11.43)
[2024-09-11 10:45] LABS: Alanine Aminotransferase 14 U/L (0-41); Albumin Level 4.1 g/dL (3.5-5.2); Alkaline Phosphatase 103 U/L (40-130); Anion Gap 16.7 (5-19); Aspartate Amino Transferase 16 U/L (0-40); Blood Urea Nitrogen 13 mg/dL (8-23); Calcium 9.1 mg/dL (8.5-10.5); Carbon Dioxide 27 mmol/L (22-29); Chloride 99 mmol/L (98-107); Chol HDL Ratio 3.88 mg/dL (1.0-5.00); Cholesterol 132 mg/dL (0-200); Globulin 4.2 g/dL (1.3-4.6); Glomerular Filtration Rate 112.5 mL/min (90-130); Glucose 100 mg/dL (65-115); HDL Cholesterol 34 mg/dL (60-100); LDL Cholesterol Calculated 64 mg/dL (50-129); LDL HDL Ratio 1.88 RATIO (0.00-3.22); Osmolality Calculated 288 mOsm/kg (285-295); Potassium 3.7 mmol/L (3.5-5.1); Sodium 139 mmol/L (136-145); Thyroid Stimulating Hormone 2.89 uIU/mL (0.27-4.20); Total Bilirubin 0.5 mg/dL (0.15-1.2); Total Protein 8.3 g/dL (6.6-8.7); Triglycerides 170 mg/dL (0-150)
[2024-09-11 11:19] LABS: Estmated Average Glucose 148; Hemoglobin A1C 6.8 % (4.0-6.0)
== END 2024-09-11 09:51 | disposition home or self-care (01) ==
LOC: LAB 09:53
PROVIDERS: PCP Family Medicine; Visit Provider Family Medicine
DX: E11.9 Type 2 diabetes mellitus without complications (principal); I10 Essential (primary) hypertension; E78.5 Hyperlipidemia, unspecified
CPT/HCPCS: 36415; 80053; 80061; 83036; 84443; 85025

== ENCOUNTER 2024-12-11 14:02 | Outpatient (CLI) | payer MEDICAID, SELFPAY ==
[2024-12-11 15:17] LABS: Estmated Average Glucose 131; Hemoglobin A1C 6.2 % (4.0-6.0)
[2024-12-11 15:24] LABS: 25 Hydroxy Vitamin D 34 ng/mL (30-100)
== END 2024-12-11 14:03 | disposition home or self-care (01) ==
PROVIDERS: PCP Family Medicine; Visit Provider Family Medicine
DX: E11.9 Type 2 diabetes mellitus without complications (principal); E55.9 Vitamin D deficiency, unspecified
CPT/HCPCS: 36415; 82306; 83036

== ENCOUNTER → 2025-01-01 10:54 | Outpatient (BNVA) | payer MEDICAID, SELFPAY | PROVIDERS: PCP Family Medicine; Visit Provider Internal Medicine | DX: I25.10 Atherosclerotic heart disease of native coronary artery without angina pectoris (principal); Z95.0 Presence of cardiac pacemaker; I10 Essential (primary) hypertension; E78.5 Hyperlipidemia, unspecified; E11.9 Type 2 diabetes mellitus without complications; I48.91 Unspecified atrial fibrillation; Z79.4 Long term (current) use of insulin; Z79.85 Long-term (current) use of injectable non-insulin antidiabetic drugs | CPT/HCPCS: 99213 ==

== ENCOUNTER 2025-01-21 07:30 | Outpatient (CLI) | payer MEDICAID, SELFPAY ==
--- NOTE | 2025-01-21 07:45 | USCV_ITS ---
Roger Correa Age: 69 Gender: M : 1955 Exam Date: 01/21/2025 07:43 Ordering Phys: Juan Auguste M.D ([email or web address]) Technologist: Exam Location: [facility] [place] Indication: cp sob BP: 120 / 80 HR: 76 Rhythm: Sinus Technical Quality: Adequate MEASUREMENTS (Male / Female) Normal Values 2D ECHO LV Diastolic Diameter PLAX 4.9 cm 4.2 - 5.9 / 3.9 - 5.3 cm IVS Diastolic Thickness 1.5 cm 0.6 - 1.0 / 0.6 - 0.9 cm IVS Systolic Thickness 1.7 cm LVPW Diastolic Thickness 1.4 cm 0.6 - 1.0 / 0.6 - 0.9 cm LVPW Systolic Thickness 1.5 cm LVOT Diameter 2.2 cm LV Ejection Fraction 2D Teich 30.6 % LV Ejection Fraction MOD 4C 49.4 % LV Ejection Fraction MOD 2C 35.0 % LV Ejection Fraction 2C AL 35.6 % LA Diameter 4.1 cm RA Systolic Volume 4C AL 66.3 ml RA Systolic Volume 4C MOD 61.8 ml Aorta at Sinotubular Diameter 3.1 cm IVC Diameter 2.4 cm M-MODE LA Ao Ratio MM 1.7 AV Cusp Separation MM 2.0 cm DOPPLER AV Peak Velocity 129.0 cm/s LVOT Peak Velocity 65.0 cm/s AV Area Cont Eq vti 2.3 cm squared AV Area Cont Eq pk 2.0 cm squared MV Peak Velocity 125.0 cm/s MV Area PHT 4.3 cm squared Mitral E to A Ratio 1.0 TV Peak Velocity 147.0 cm/s TR Peak Velocity 180.0 cm/s TR Peak Gradient 13.0 mmHg TV Peak E Velocity 80.0 cm/s PV Peak Velocity 107.0 cm/s FINDINGS Left Ventricle Left ventricle is normal in size. LV systolic function is moderately reduced with EF of 35-40%. Moderate global hypokinesis. Right Ventricle Grossly normal. Pacemaker lead is seen Right Atrium Normal in size Left Atrium Dilated Mitral Valve Mild mitral annular calcification. Mild mitral regurgitation Aortic Valve Bioprosthetic aortic valve. No significant stenosis Tricuspid Valve Insufficient TR jet to calculate RVSP. Pulmonic Valve Not well visualized Pericardium Normal Aorta Normal in size IVC Not well visualized CONCLUSIONS LV systolic function is moderately reduced with EF of 35-40% Left atrium is dilated Bioprosthetic aortic valve. Mild mitral regurgitation Compared to prior echocardiogram from 05/28/2024, no significant changes are seen. Juan Auguste MD (Electronically Signed) Final Date: 25 Jan 2025 15:59 S
== END 2025-01-21 07:31 | disposition home or self-care (01) ==
PROVIDERS: PCP Family Medicine; Visit Provider Internal Medicine
DX: R06.02 Shortness of breath (principal); R93.1 Abnormal findings on diagnostic imaging of heart and coronary circulation; Z96.89 Presence of other specified functional implants; I51.7 Cardiomegaly; I34.81 Nonrheumatic mitral (valve) annulus calcification; I34.0 Nonrheumatic mitral (valve) insufficiency; Z95.2 Presence of prosthetic heart valve
CPT/HCPCS: 93306

== ENCOUNTER 2025-01-31 19:07 | Emergency (ER) | payer MEDICAID, SELFPAY ==
[2025-01-31 19:24] VITALS: BP 147/66; PULSE 95; RESP 18; TEMP 36.5; O2SAT 93; BMI 42.3
--- NOTE | 2025-01-31 19:24 | CTR_ITS ---
PROCEDURE INFORMATION: Exam: CTA Abdomen and Pelvis With Contrast Exam date and time: 01/31/2025 7:52 PM Age: 69 years old Clinical indication: Prior surgery; Surgery date: 6+ months; Surgery type: Aortic valve replacement; Onset of lower gi bleed this morning. Anticoagulated. TECHNIQUE: Imaging protocol: Computed tomographic angiography of the abdomen and pelvis with contrast. Exam focused on the arteries. 3D rendering (Not supervised by radiologist): MIP and/or 3D reconstructed images were created by the technologist. Radiation optimization: All CT scans at this facility use at least one of these dose optimization techniques: automated exposure control; mA and/or kV adjustment per patient size (includes targeted exams where dose is matched to clinical indication); or iterative reconstruction. Contrast material: OMNI 350; Contrast volume: 100 ml; Contrast route: INTRAVENOUS (IV); COMPARISON: CT lung screening [id number] 07/04/2024 12:08 PM RADIATION DOSE METRICS: Total DLP (mGy-cm): 1073.19 FINDINGS: Lungs: Lung bases are unremarkable. Aorta: There is no aortic aneurysm. Ectasia of the infrarenal abdominal aorta which measures 2.8 cm in AP diameter. 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 Mild disease of the origin of the SMA. Patent GONZALEZ. Renal arteries: Diseased but patent renal arteries (2 on the right and 1 on the left). Right iliac arteries: Diseased but patent right iliac arteries. Left iliac arteries: Diseased but patent left iliac arteries. Other arteries: There is atherosclerotic disease. Liver: The liver is unremarkable. Gallbladder and biliary ducts: No intrahepatic or extrahepatic biliary ductal dilatation. The gallbladder is unremarkable with no radioopaque stone. Pancreas: The pancreas is atrophic. Spleen: The spleen is unremarkable. Adrenal glands: Adrenal glands are unremarkable. Kidneys and ureters: No hydronephrosis, hydroureter or nephrolithiasis. Stomach and bowel: Stomach is not distended. There are multiple foci of hyperdensities within the body of the stomach, 1st portion of duodenum, proximal and mid small bowel loops as well as in the descending colon suggestive of multiple foci of bleeding. These may be due to active bleeding or ingested contents, if there is active bleeding, exact site of bleeding can not be localized as a triphasic study was not performed. Appendix: Appendix is unremarkable. Intraperitoneal space: No free intraperitoneal air. No significant fluid collection. Lymph nodes: No pathologically enlarged lymph nodes (by short axis size criteria). Urinary bladder: Bladder is distended with no focal wall thickening. Reproductive: Visualized portions of the male reproductive tract are unremarkable for patient's age, though routine CT is limited in this regard. Bones/joints: No acute osseous abnormality. There is degenerative disease of the spine. Soft tissues: There is a fat containing umbilical hernia. CT/CT angio abdomen pelvis [id number] IMPRESSION: Limited study for evaluation of active bleeding as a noncontrast study was not obtained prior to the CTA. Multiple intraluminal hyperdensities from within the body of the stomach, 1st portion of the duodenal, proximal and mid small bowel and descending colon. These could represent active bleeding or ingested contents, the exact site of active bleeding is uncertain. If there is persistent clinical concern, recommend a triphasic scan.
[2025-01-31] MEDS: lactated ringers 1,000 ML 999 ML IV (19:38)
[2025-01-31] MEDS: pantoprazole 40 mg SDV 80 MG IVP (19:38)
[2025-01-31 19:40] LABS: Basophils # 0.1 10^3/uL (0.0-0.1); Basophils % 0.8 %; Eosinophils # 0.3 10^3/uL (0.0-0.8); Eosinophils % 2.2 %; Hematocrit 45.2 % (37-53); Lymphocytes # 3.8 10^3/uL (0.8-4.8); Lymphocytes % 23.9 %; Mean Corpuscular HGB Conc 31.6 g/dL (30-55); Mean Corpuscular Hemoglobin 27.6 pg (27-33); Mean Corpuscular Volume 87.1 fl (82-101); Mean Platelet Volume 8.8 fL (7.4-10.4); Monocytes # 0.8 10^3/uL (0.2-0.9); Monocytes % 5.3 %; Neutrophils # 10.42 10^3/uL (1.8-7.7); Neutrophils % 66.3 %; Nucleated Red Blood Cells % 0 %; Platelet Count 318 10^3/cmm (157-399); Red Blood Count 5.19 10^6/uL (3.85-5.65); Red Cell Distribution Width 17.6 % (12.1-15.1); White Blood Count 15.73 10^3/uL (3.29-11.43)
[2025-01-31 19:51] LABS: INR 0.84 (0.8-1.2); Partial Thromboplastin Time 19.5 SECONDS (23.9-36.7)
[2025-01-31] MEDS: iohexol 350 mg/mL 500 mL Btl (per mL) IV (19:53)
--- NOTE | 2025-01-31 19:53 | W.ED.GIBLEED ---
HPI - GI Bleed General: Chief complaint: GI Bleed Stated complaint: Rectum Bleeding Time Seen by Provider: 01/31/25 19:24 History of Present Illness: 69-year-old male presents to the emergency department for evaluation of rectal bleeding. It started at 2:00 in the morning. He is at approximately 8-10 bloody stools. He describes them as blood diarrhea. He also says that he has been shooting blood like a goose. Patient reports that he did have an abnormal Cologuard in the past but did not follow-up with colonoscopy. He is very adamant that he will never have a colonoscopy. He has a past medical history of quadruple bypass and is currently on clopidogrel and aspirin. Denies being on any blood thinners. Reports a history of diabetes and COPD. Does not have any worsening shortness of breath. Denies chest pain, abdominal pain, muscle/joint pain, fevers. Denies history of hemorrhoids. Reports eating half of a watermelon including the seeds within the last couple of days. Related Data Home Medications ?Medication ?Instructions ?Recorded ?Confirmed albuterol sulfate 90 mcg/actuation 2 puff inhalation QID PRN Allergic 04/10/22 01/01/25 aerosol inhaler (ProAir HFA) Reaction atorvastatin 40 mg tablet 40 mg PO DAILY 04/10/22 01/01/25 cholecalciferol (vitamin D3) 50 50 mcg PO DAILY 04/10/22 01/01/25 mcg (2,000 unit) capsule dulaglutide 1.5 mg/0.5 mL 300 mg SUBCUT DIRECTED 04/10/22 01/01/25 subcutaneous pen injector (Trulicity) insulin aspart U-100 100 unit/mL 20 unit SUBCUT QID 04/10/22 01/01/25 subcutaneous cartridge (Novolog PenFill U-100 Insulin aspart) insulin glargine 100 unit/mL (3 45 unit SUBCUT DAILY 04/10/22 01/01/25 mL) subcutaneous pen (Lantus Solostar U-100 Insulin) naproxen 500 mg tablet 500 mg PO BID PRN Analgesia 04/10/22 01/01/25 81-iron 27 mg-folic 1 1 dose pk PO DAILY 04/10/22 01/01/25 mg-omega3 430 mg tablet,capsule,del.rel ([facility] DHA) cetirizine 10 mg tablet 10 mg PO DAILY PRN 02/12/23 01/01/25 albuterol sulfate 2.5 mg/3 mL 2.5 mg inhalation Q4H PRN 05/16/23 01/01/25 (0.083 %) solution for nebulization empagliflozin 25 mg tablet 25 mg PO DAILY 05/16/23 01/01/25 (Jardiance) furosemide 80 mg tablet 80 mg PO DAILY 08/20/23 01/01/25 fluticasone fur. 100 mcg-umeclid 1 inh inhalation DAILY 10/17/23 01/01/25 62.5 mcg-vilant 25 mcg inhalat.powder (Trelegy Ellipta) aspirin 81 mg tablet,delayed 81 mg PO DAILY 12/06/23 01/01/25 release clopidogrel 75 mg tablet (Plavix) 75 mg PO DAILY 12/06/23 01/01/25 Previous Rx's ?Medication ?Instructions ?Recorded Blood Pressure Cuff #1 ea 05/16/23 potassium chloride 20 mEq 20 meq PO BID #60 tabs 05/16/23 tablet,extended release diltiazem HCl 120 mg tablet See Rx Instructions .Route 01/16/24 .COMPLEX #180 tabs Allergies Allergy/AdvReac Type Severity Reaction Status Date / Time clavulanic acid (From Allergy Unknown Unknown Verified 01/31/25 19:28 Augmentin) Review of Systems General: Reports: 10 or more systems reviewed and unremarkable except in HPI and below PFSH ED PFSH: Medical History Hyperlipidemia, unspecified Cardiac pacemaker Arteriosclerosis of coronary artery bypass graft Essential (primary) hypertension Asthma COPD (chronic obstructive pulmonary disease) Type 2 diabetes mellitus Heart disease Hyperlipemia Hypertension Osteoarthritis Rheumatoid arthritis CAD (coronary artery disease) Obesity Surgical History H/O aortic valve replacement H/O angioplasty Family History Grandfather Stroke Grandmother Chest pain Social History (Updated 01/01/25 @ 11:11 by Lynn Martinez RN) Smoking and tobacco/nicotine status: former use of tobacco/nicotine Quit status (tobacco/nicotine): has quit using Year quit tobacco: 2019 Former quit date comment: 2ppd x 51 years Substance/Drug Use: current Physical Exam Const: COMMON NORMALS: no acute distress, patient oriented x3, healthy appearing, alert and well nourished HENMT: COMMON NORMALS: normocephalic HEAD & SCALP: normocephalic Eye: COMMON NORMALS: EOMs intact bilaterally Neck/C-Spine: COMMON NORMALS: full ROM and supple Resp: COMMON NORMALS: normal respiratory effort, No retractions and clear to auscultation bilaterally AUSCULTATION: clear to auscultation bilaterally Cardio: COMMON NORMALS: regular rate, regular rhythm, No gallops present (Cardio) and No murmurs present (Cardio) RATE: regular rate RHYTHM: regular rhythm GI: COMMON NORMALS: Soft to palpation and non-tender PALPATION: Yes Soft to palpation RECTAL EXAM: Yes visual inspection normal (Blood noted around the anal sphincter. 2 skin tags.) and Yes normal sphincter tone Extremity: GENERAL: Yes normal exam except as noted Neuro: COMMON NORMALS: patient oriented x3 SENSORIUM/ORIENTATION: Yes alert Skin: COMMON NORMALS: no rashes or lesions noted GENERAL SKIN EXAM: no rashes or lesions noted Course Vital Signs: Vital signs: Vital Signs Temperature 97.7 F 01/31/25 19:24 Pulse Rate 95 01/31/25 19:24 Respiratory Rate 18 01/31/25 19:24 Blood Pressure 147/66 01/31/25 19:24 Pulse Oximetry 93 01/31/25 19:24 Oxygen Delivery Me thod Room Air 01/31/25 19:24 MDM - GI Bleed Medical Decision Making 69-year-old male presents to the emergency department for evaluation of bright red stools. Exam with no significant findings. Patient is not febrile, tachycardic, or hypotensive with no significant findings. Stool guaiac is negative. Hemoglobin hematocrit normal. Slight elevation in white count. BUN and creatinine are normal. CT demonstrated multiple intraluminal hyperdensities from within the body of the stomach, 1st portion of the duodenal, proximal and mid small bowel and descending colon. These could represent active bleeding or ingested contents, the exact site of active bleeding is uncertain. Given the fact that the patient does not appear to be bleeding we will defer triphasic scan for outpatient study. Encouraged the patient to follow-up with his primary care physician for follow-up on this abnormal CT scan. Additionally, counseled the patient that he should get a colonoscopy with that history of inconclusive Cologuard. Patient did provide additional history that within the last day he has eaten a pound of red licorice in addition to the 2 days of eating a watermelon by himself. Patient's bright red stools are likely secondary to red dye 40 and diarrhea from excessive watermelon consumption. Discussed all these findings with the patient and his who are in agreement with discharge home and outpatient follow-up. Return precautions were discussed and the patient was discharged home in good condition. Lab Data 01/31/25 22:14 01/31/25 19:32 Radiology Impressions Abdomen/Pelvis CTA 01/31/25 19:24 IMPRESSION: Limited study for evaluation of active bleeding as a noncontrast study was not obtained prior to the CTA. Multiple intraluminal hyperdensities from within the body of the stomach, 1st portion of the duodenal, proximal and mid small bowel and descending colon. These could represent active bleeding or ingested contents, the exact site of active bleeding is uncertain. If there is persistent clinical concern, recommend a triphasic scan. ADDENDUM: 01/31/252043 THIS REPORT CONTAINS FINDINGS THAT MAY BE CRITICAL TO PATIENT CARE. The findings were verbally communicated via telephone conference with Dr. Dwyer at 8:43 PM CDT on 01/31/2025. The findings were acknowledged and understood. Laboratory Results WBC 13.80 10^3/uL (3.29-11.43) H 01/31/25 22:14 RBC 4.27 10^6/uL (3.85-5.65) 01/31/25 22:14 Hgb 12.20 g/dL (11.27-16.99) 01/31/25 22:14 Hct 37.3 % (37-53) 01/31/25 22:14 MCV 87.4 fl (82-101) 01/31/25 22:14 MCH 28.6 pg (27-33) 01/31/25 22:14 MCHC 32.7 g/dL (30-55) 01/31/25 22:14 RDW 17.4 % (12.1-15.1) H 01/31/25 22:14 Plt Count 251 10^3/cmm (157-399) 01/31/25 22:14 MPV 9.0 fL (7.4-10.4) 01/31/25 22:14 Neut % (Auto) 76.3 % 01/31/25 22:14 Lymph % (Auto) 15.9 % 01/31/25 22:14 Stark % (Auto) 4.6 % 01/31/25 22:14 Eos % (Auto) 1.3 % 01/31/25 22:14 Baso % (Auto) 0.5 % 01/31/25 22:14 Neut # (Auto) 10.52 10^3/uL (1.8-7.7) H 01/31/25 22:14 Lymph # (Auto) 2.2 10^3/uL (0.8-4.8) 01/31/25 22:14 Stark # (Auto) 0.6 10^3/uL (0.2-0.9) 01/31/25 22:14 Eos # (Auto) 0.2 10^3/uL (0.0-0.8) 01/31/25 22:14 Baso # (Auto) 0.1 10^3/uL (0.0-0.1) 01/31/25 22:14 Nucleated RBC % (auto) 0 % 01/31/25 22:14 Nucleated RBCs # 0.0 /100WBC 01/31/25 22:14 PT 12.10 SECONDS (12.1-14.9) 01/31/25 19:32 INR 0.84 (0.8-1.2) 01/31/25 19:32 APTT 19.5 SECONDS (23.9-36.7) L 01/31/25 19:32 Sodium 139 mmol/L (136-145) 01/31/25 19:32 Potassium 4.2 mmol/L (3.5-5.1) 01/31/25 19:32 Chloride 99 mmol/L (98-107) 01/31/25 19:32 Carbon Dioxide 26 mmol/L (22-29) 01/31/25 19:32 Anion Gap 18.2 (5-19) 01/31/25 19:32 BUN 14 mg/dL (8-23) 01/31/25 19:32 Creatinine 0.9 mg/dL (0.7-1.2) 01/31/25 19:32 GFR Calculation 83.9 mL/min (90-130) L 01/31/25 19:32 Glucose 124 mg/dL (65-115) H 01/31/25 19:32 Calculated Osmolality 292 mOsm/kg (285-295) 01/31/25 19:32 Calcium 9.2 mg/dL (8.5-10.5) 01/31/25 19:32 Total Bilirubin 0.4 mg/dL (0.15-1.2) 01/31/25 19:32 AST 25 U/L (0-40) 01/31/25 19:32 ALT 16 U/L (0-41) 01/31/25 19:32 Alkaline Phosphatase 99 U/L (40-130) 01/31/25 19:32 Total Protein 7.8 g/dL (6.6-8.7) 01/31/25 19:32 Albumin 3.9 g/dL (3.5-5.2) 01/31/25 19:32 Globulin 3.7 g/dL (1.3-4.6) 01/31/25 19:32 Blood Type A Positive 01/31/25 19:32 Rho(D) Type Rh positive 01/31/25 19:32 Antibody Screen Negative 01/31/25 19:32 All radiology interpretation(s) finalized by discharge Discharge Plan Discharge Patient Disposition: Home Clinical Impression: Bright red stool Condition: Stable Prescriptions: No Action albuterol sulfate 2.5 mg /3 mL (0.083 %) solution for nebulization 2.5 mg inhalation Q4H PRN Jardiance 25 mg tablet 25 mg PO DAILY (DME) Blood Pressure Cuff See Rx Instructions .Route .MEDSUPPLY Qty: 1 0RF Rx Instructions: As directed potassium chloride 20 mEq tablet extended release 20 meq PO BID Qty: 60 4RF Trelegy Ellipta 100-62.5-25 mcg blister with device 1 inh inhalation DAILY clopidogrel [Plavix] 75 mg tablet 75 mg PO DAILY aspirin 81 mg tablet,delayed release (DR/EC) 81 mg PO DAILY albuterol sulfate [ProAir HFA] 90 mcg/actuation HFA aerosol inhaler 2 puff inhalation QID PRN (Reason: Allergic Reaction) cholecalciferol (vitamin D3) 50 mcg (2,000 unit) capsule 50 mcg PO DAILY Bal-Care DHA 27-1-430 mg combo pack,tablet and cap, 1 dose pk PO DAILY insulin aspart U-100 [Novolog PenFill U-100 Insulin] 100 unit/mL cartridge 20 unit SUBCUT QID insulin glargine [Lantus Solostar U-100 Insulin] 100 unit/mL (3 mL) insulin pen 45 unit SUBCUT DAILY atorvastatin 40 mg tablet 40 mg PO DAILY Trulicity 1.5 mg/0.5 mL pen injector 300 mg SUBCUT DIRECTED Rx Instructions: WEEKLY naproxen 500 mg tablet 500 mg PO BID PRN (Reason: Analgesia) furosemide 80 mg tablet 80 mg PO DAILY Rx Instructions: In the AM cetirizine 10 mg tablet 10 mg PO DAILY PRN diltiazem HCl 120 mg tablet See Rx Instructions .ROUTE .COMPLEX Qty: 180 3RF Dose Instruction: TAKE 1 TABLET BY MOUTH TWICE DAILY Rx Instructions: TAKE 1 TABLET BY MOUTH TWICE DAILY Discharge Orders: Discharge ED (Routine); Ordered 01/31/25 Ordered By: Alejandro Law Referrals: Francesco Barnard MD [Primary Care Provider, Family Practice] Discharge Diet: Advance as tolerated Discharge Activity: Resume usual activity Patient Instructions: Opioid Safety, Pain Management Activity Restrictions/Additional Instructions: Please follow-up with your primary care physician regarding the abnormal findings in your CT scan. Return to the emergency department for any new or worsening symptoms peer Print Language: Setswana Coding Level of Care Code ED [facility] for Ortiz Brannon
[2025-01-31 20:04] LABS: Albumin Level 3.9 g/dL (3.5-5.2); Chloride 99 mmol/L (98-107); Potassium 4.2 mmol/L (3.5-5.1); Sodium 139 mmol/L (136-145)
[2025-01-31 20:16] LABS: Alanine Aminotransferase 16 U/L (0-41); Alkaline Phosphatase 99 U/L (40-130); Anion Gap 18.2 (5-19); Aspartate Amino Transferase 25 U/L (0-40); Blood Urea Nitrogen 14 mg/dL (8-23); Calcium 9.2 mg/dL (8.5-10.5); Carbon Dioxide 26 mmol/L (22-29); Creatinine Clr Calc Pharmacy 98.4978; Globulin 3.7 g/dL (1.3-4.6); Glomerular Filtration Rate 83.9 mL/min (90-130); Glucose 124 mg/dL (65-115); Osmolality Calculated 292 mOsm/kg (285-295); Total Bilirubin 0.4 mg/dL (0.15-1.2); Total Protein 7.8 g/dL (6.6-8.7)
[2025-01-31 22:00] VITALS: BP 141/91; PULSE 86; RESP 18; O2SAT 96
[2025-01-31 22:23] LABS: Basophils # 0.1 10^3/uL (0.0-0.1); Basophils % 0.5 %; Eosinophils # 0.2 10^3/uL (0.0-0.8); Eosinophils % 1.3 %; Hematocrit 37.3 % (37-53); Lymphocytes # 2.2 10^3/uL (0.8-4.8); Lymphocytes % 15.9 %; Mean Corpuscular HGB Conc 32.7 g/dL (30-55); Mean Corpuscular Hemoglobin 28.6 pg (27-33); Mean Corpuscular Volume 87.4 fl (82-101); Monocytes # 0.6 10^3/uL (0.2-0.9); Monocytes % 4.6 %; Neutrophils # 10.52 10^3/uL (1.8-7.7); Neutrophils % 76.3 %; Nucleated Red Blood Cells % 0 %; Platelet Count 251 10^3/cmm (157-399); Red Blood Count 4.27 10^6/uL (3.85-5.65); Red Cell Distribution Width 17.4 % (12.1-15.1)
[2025-01-31 23:00] VITALS: BP 137/91; PULSE 87; RESP 20; O2SAT 97
== END 2025-01-31 23:00 | disposition home or self-care (01) ==
PROVIDERS: Emergency Provider General Practice; PCP Family Medicine
DX: R19.5 Other fecal abnormalities (principal); Z79.899 Other long term (current) drug therapy; Z79.85 Long-term (current) use of injectable non-insulin antidiabetic drugs; Z79.84 Long term (current) use of oral hypoglycemic drugs; Z79.4 Long term (current) use of insulin; Z79.02 Long term (current) use of antithrombotics/antiplatelets; Z79.82 Long term (current) use of aspirin
CPT/HCPCS: 74174; 80053; 82274; 85025; 85610; 85730; 86850; 86900; 96374; 99285; J2470; J7120

== ENCOUNTER 2025-03-12 14:25 | Outpatient (CLI) | payer MEDICAID, SELFPAY ==
[2025-03-12 15:36] LABS: Estmated Average Glucose 131; Hemoglobin A1C 6.2 % (4.0-6.0)
== END 2025-03-12 14:26 | disposition home or self-care (01) ==
LOC: LAB 14:28
PROVIDERS: PCP Family Medicine; Visit Provider Family Medicine
DX: E11.9 Type 2 diabetes mellitus without complications (principal)
CPT/HCPCS: 36415; 83036

== ENCOUNTER 2025-06-11 14:10 | Outpatient (CLI) | payer MEDICAID, SELFPAY ==
[2025-06-11 15:30] LABS: Estmated Average Glucose 151; Hemoglobin A1C 6.9 % (4.0-6.0)
[2025-06-11 15:36] LABS: Creatinine Urine, Random 69 mg/dL (39-259); Microalbum Creatinine Ratio Ur 72 mg/dL (0-20)
== END 2025-06-11 14:11 | disposition home or self-care (01) ==
LOC: LAB 14:18
PROVIDERS: PCP Family Medicine; Visit Provider Family Medicine
DX: E11.9 Type 2 diabetes mellitus without complications (principal)
CPT/HCPCS: 36415; 82044; 83036

== ENCOUNTER 2025-07-06 09:01 | Outpatient (CLI) | payer MEDICAID, SELFPAY ==
--- NOTE | 2025-07-06 09:04 | CT_ITS ---
WS: [id number] LDCT LUNG CANCER SCREENING TECHNIQUE: Noncontrast CT of the chest with coronal and sagittal reformatted images. CLINICAL INFORMATION: NICOTINE DEPENDENCE, CIGARETTES COMPARISON: 2023 DLP: 184.59 mGy.cm DIvol: Mean CTDIvol: 4.40 (mGy) All CT scans at [facility] use at least one of these dose optimization techniques: automated exposure control; mA and/or kV adjustment per patient size (includes targeted exams where dose is matched to clinical indication); or iterative reconstruction. FINDINGS: 3 mm subpleural nodule RIGHT upper lobe. 4 mm nodule RIGHT lower lobe is new from previous. Subsegmental atelectasis RIGHT middle lobe and RIGHT upper lobe. Subsegmental atelectasis LEFT upper lobe anteriorly. Subsegmental atelectasis in the lingula. No mediastinal or hilar lymphadenopathy. No axillary lymphadenopathy. Small esophageal hiatal hernia. Aortic calcification. AVR. Sternotomy. Coronary calcification. CABG. normal adrenal glands. Thoracic kyphosis. Hypertrophic changes thoracic spine. CT/CT lung screening [id number] IMPRESSION: LUNG-RADS: 2-Benign Appearance or Behavior FOLLOW UP: 12 Month: Continue annual screening with LDCT
== END 2025-07-06 09:02 | disposition home or self-care (01) ==
LOC: RAD 09:02
PROVIDERS: PCP Family Medicine; Visit Provider Family Medicine
DX: F17.210 Nicotine dependence, cigarettes, uncomplicated (principal); Z12.2 Encounter for screening for malignant neoplasm of respiratory organs; J98.11 Atelectasis; K44.9 Diaphragmatic hernia without obstruction or gangrene; M40.294 Other kyphosis, thoracic region; Z98.890 Other specified postprocedural states
CPT/HCPCS: 71271

== ENCOUNTER → 2025-08-12 12:32 | Outpatient (BNVA) | payer MEDICAID, SELFPAY | PROVIDERS: PCP Family Medicine; Visit Provider Internal Medicine | DX: I25.10 Atherosclerotic heart disease of native coronary artery without angina pectoris (principal); I10 Essential (primary) hypertension; E78.5 Hyperlipidemia, unspecified; E11.9 Type 2 diabetes mellitus without complications; Z79.4 Long term (current) use of insulin; Z79.84 Long term (current) use of oral hypoglycemic drugs; Z79.85 Long-term (current) use of injectable non-insulin antidiabetic drugs; I48.91 Unspecified atrial fibrillation; Z79.02 Long term (current) use of antithrombotics/antiplatelets; Z79.82 Long term (current) use of aspirin; Z98.61 Coronary angioplasty status; Z95.0 Presence of cardiac pacemaker; Z95.2 Presence of prosthetic heart valve; Z87.891 Personal history of nicotine dependence | CPT/HCPCS: 99214 ==